=== PATIENT | female | born 1995 ===

== ENCOUNTER 2024-08-11 06:48 | Outpatient (REF) | payer OTHER, SELFPAY ==
--- NOTE | ~2024-08-11 | US_ITS ---
EXAMINATION: US PELVIS TRANSABDOMINAL AND TRANSVAGINAL HISTORY: PELVIC PAIN, CHECK IUD LOCATION COMPARISON: There are no prior studies for comparison. TECHNIQUE: Transabdominal and endovaginal real-time 2D boothe-scale ultrasound was performed. FINDINGS: Uterus: The uterus is normal in size, measuring 7.4 x 2.9 x 3.3 cm. Myometrium has a normal echotexture. No fibroids are identified. Endometrium: The endometrial stripe measures 3 mm in thickness. An IUD is noted in the expected position in the endometrial cavity. Right ovary: The right ovary measures 2.5 x 2.0 x 2.1 cm. The right ovary is normal in size and echotexture. Left ovary: The left ovary measures 2.5 x 1.8 x 1.6 cm. The left ovary is normal in size and echotexture. Pelvic fluid: none. US/US pelvic and transvaginal IMPRESSION: Unremarkable pelvic ultrasound. IUD in the expected position in the endometrial cavity. Electronically signed by: Roney Lea MD 08/12/2024 07:30 AM EDT
== END 2024-08-11 06:49 | disposition home or self-care (01) ==
LOC: HO.UMASIMG 06:48
PROVIDERS: Visit Provider Family Medicine
DX: R10.2 Pelvic and perineal pain (principal); M54.9 Dorsalgia, unspecified
CPT/HCPCS: 76830; 76856

== ENCOUNTER → 2024-08-11 15:30 | Outpatient (BNV) | payer OTHER, SELFPAY | PROVIDERS: Visit Provider Radiology Diagnostic Radiology | DX: R10.2 Pelvic and perineal pain (principal) | CPT/HCPCS: 76830; 76856 ==